=== PATIENT | female | born 1960 | race Caucasian/White ===

== ENCOUNTER → 2020-11-20 17:48 | Outpatient (BNVA) | payer BC, SELFPAY | PROVIDERS: Visit Provider Family Medicine | DX: I10 Essential (primary) hypertension (principal); E89.0 Postprocedural hypothyroidism; I48.91 Unspecified atrial fibrillation; I38 Endocarditis, valve unspecified; I48.0 Paroxysmal atrial fibrillation; R74.8 Abnormal levels of other serum enzymes | CPT/HCPCS: 80053; 80061; 84439; 84443; 84481 ==

== ENCOUNTER → 2021-04-26 08:59 | Outpatient (BNVA) | payer BC, SELFPAY | PROVIDERS: Visit Provider Family Medicine | DX: E89.0 Postprocedural hypothyroidism; I10 Essential (primary) hypertension; I48.0 Paroxysmal atrial fibrillation; R74.8 Abnormal levels of other serum enzymes | CPT/HCPCS: 80053; 84439; 84443; 84481 ==

== ENCOUNTER 2021-04-30 12:00 | Outpatient (CLI) | payer BC, SELFPAY | END 2021-04-30 12:01 | disposition home or self-care (01) | LOC: SLEEP 05-01 09:58 | PROVIDERS: Visit Provider Internal Medicine Cardiovascular Disease | DX: G47.10 Hypersomnia, unspecified (principal) | CPT/HCPCS: G0399 ==

== ENCOUNTER 2021-05-17 14:34 | Outpatient (CLI) | payer BC, SELFPAY ==
--- NOTE | 2021-05-17 15:00 | USCV_ITS ---
Angelica Felix Age: 60 Gender: F : 1960 Exam Date: 05/17/2021 15:00 Ordering Phys: Ginny Drew MD ([email or web address]) Technologist: [email or web address] Exam Location: [facility] – [place] Indication: Paroxysmal atrial fibrillation BP: / HR: 128 Rhythm: Sinus Technical Quality: Adequate MEASUREMENTS (Male / Female) Normal Values 2D ECHO LV Diastolic Diameter PLAX 4.3 cm 4.2 - 5.9 / 3.9 - 5.3 cm LV Systolic Diameter PLAX 3.2 cm IVS Diastolic Thickness 1.1 cm 0.6 - 1.0 / 0.6 - 0.9 cm IVS Systolic Thickness 2.0 cm LVPW Diastolic Thickness 0.9 cm 0.6 - 1.0 / 0.6 - 0.9 cm LVPW Systolic Thickness 1.7 cm LVOT Diameter 2.0 cm LV Ejection Fraction 2D Teich 49.9 % LV Ejection Fraction MOD 2C 73.4 % LV Ejection Fraction 2C AL 73.9 % LA Diameter 4.0 cm LA Width 4.8 cm LA Height 5.4 cm RA Width 3.2 cm RA Height 4.5 cm Aorta at Sinotubular Diameter 2.8 cm M-MODE Aortic Annulus Diameter 3.5 cm MV E Point Septal Separation 0.3 cm DOPPLER AV Peak Velocity 157.0 cm/s LVOT Peak Velocity 102.0 cm/s AV Area Cont Eq vti 1.9 cm squared AV Area Cont Eq pk 2.1 cm squared MV Peak Velocity 68.0 cm/s MV Area PHT 2.5 cm squared Mitral E to A Ratio 0.8 MV E' Velocity 35.5 cm/s Mitral E to MV E' Ratio 6.9 Mitral E to LV E' Lateral Ratio 6.2 Mitral E to LV E' Septal Ratio 7.8 TR Peak Velocity 256.3 cm/s TR Peak Gradient 26.3 mmHg TV Peak E Velocity 37.0 cm/s Right Atrial Pressure 5.0 mmHg Pulmonary Artery Systolic Pressu 31.3 mmHg PV Peak Velocity 127.0 cm/s RV Acceleration Time 0.1 s RV Ejection Time 0.4 s RV AcT/ET 0.2 FINDINGS Left Ventricle Normal left ventricular size, systolic function and wall thickness, with no regional wall motion abnormalities. Left ventricular ejection fraction is estimated at 65 %. Normal diastolic function. Right Ventricle Normal right ventricular size and systolic function. Right ventricular systolic pressure 36 mmHg. Right Atrium Normal right atrial size. Right atrial pressure estimated at 3 mm Hg. Left Atrium Moderately increased left atrial size. Mitral Valve Mild mitral annular calcification. Structurally normal mitral valve. No mitral valve stenosis. Mild mitral valve regurgitation. Aortic Valve Structurally normal trileaflet aortic valve. No aortic valve stenosis. Trace aortic valve regurgitation. Tricuspid Valve Structurally normal tricuspid valve. No tricuspid valve stenosis. Mild tricuspid valve regurgitation. Pulmonic Valve Structurally normal pulmonic valve. No pulmonary valve stenosis. Trace pulmonary valve regurgitation. Pericardium No pericardial effusion. Aorta Normal size aortic root and proximal ascending aorta. Normal sized inferior vena cava with normal respiratory variation. CONCLUSIONS 1. Normal left ventricular size, systolic function and wall thickness, with no regional wall motion abnormalities. Left ventricular ejection fraction is estimated at 65 %. Normal diastolic function. 2. Normal right ventricular size and systolic function. 3. Pulmonary artery pressure estimated at 36 mm Hg. 4. Mild mitral and tricuspid valve regurgitation. 5. No prior similar studies to compare. Ginny Drew MD (Electronically Signed) Final Date: 26 May 2021 13:59 S
== END 2021-05-17 14:35 | disposition home or self-care (01) ==
LOC: RAD 14:37
PROVIDERS: Visit Provider Internal Medicine Cardiovascular Disease
DX: I48.0 Paroxysmal atrial fibrillation (principal)
CPT/HCPCS: C8929

== ENCOUNTER → 2021-12-07 10:23 | Outpatient (BNVA) | payer BC, SELFPAY | PROVIDERS: Visit Provider Emergency Medicine | DX: M25.761 Osteophyte, right knee (principal); M25.561 Pain in right knee | CPT/HCPCS: 73562 ==

== ENCOUNTER 2021-12-26 09:30 | Outpatient (CLI) | payer BC, SELFPAY | END 2021-12-26 23:00 | disposition home or self-care (01) | PROVIDERS: PCP Family Medicine; Visit Provider Emergency Medicine | DX: Z13.220 Encounter for screening for lipoid disorders; Z13.6 Encounter for screening for cardiovascular disorders; E89.0 Postprocedural hypothyroidism; I10 Essential (primary) hypertension | CPT/HCPCS: 80053; 80061; 84439; 84443; 84481 ==

== ENCOUNTER 2022-12-06 11:55 | Outpatient (CLI) | payer BC, SELFPAY ==
--- NOTE | 2022-12-06 12:04 | USCV_ITS ---
Angelica Felix Age: 62 Gender: F : 1960 Exam Date: 12/06/2022 12:14 Ordering Phys: Jhon Arcos MD Technologist: Exam Location: [facility] – [place] Indication: afib BP: 128 / 78 HR: 119 Rhythm: Atrial fibrillation Technical Quality: Adequate MEASUREMENTS (Male / Female) Normal Values 2D ECHO LV Diastolic Diameter PLAX 4.1 cm 4.2 - 5.9 / 3.9 - 5.3 cm LV Systolic Diameter PLAX 3.5 cm IVS Diastolic Thickness 1.3 cm 0.6 - 1.0 / 0.6 - 0.9 cm IVS Systolic Thickness 1.7 cm LVPW Diastolic Thickness 1.3 cm 0.6 - 1.0 / 0.6 - 0.9 cm LVPW Systolic Thickness 2.1 cm LVOT Diameter 2.0 cm LV Ejection Fraction 2D Teich 28.7 % LV Ejection Fraction MOD 2C 52.5 % LV Ejection Fraction 2C AL 50.0 % LA Diameter 5.1 cm IVC Diameter 2.2 cm M-MODE RV Diastolic Diameter MM 2.4 cm Aortic Annulus Diameter 3.2 cm LA Ao Ratio MM 1.5 MV E Point Septal Separation 1.4 cm DOPPLER AV Peak Velocity 116.0 cm/s LVOT Peak Velocity 72.0 cm/s AV Area Cont Eq vti 2.3 cm squared AV Area Cont Eq pk 2.0 cm squared MV Area PHT 5.0 cm squared Mitral E to A Ratio 2.3 MV E' Velocity 49.0 cm/s Mitral E to MV E' Ratio 5.5 Mitral E to LV E' Lateral Ratio 6.5 Mitral E to LV E' Septal Ratio 4.7 TR Peak Velocity 338.6 cm/s TR Peak Gradient 45.9 mmHg TV Peak E Velocity 100.0 cm/s Right Atrial Pressure 3.0 mmHg Pulmonary Artery Systolic Pressu 48.9 mmHg FINDINGS Left Ventricle Diffuse hypokinesia of the left ventricular ejection fraction of around 40%. No intracardiac masses Right Ventricle Normal right ventricular size and systolic function. Right Atrium Moderately increased right atrial size. Left Atrium Moderately increased left atrial size. The interatrial septum is abutting the right side. Mitral Valve Mild to moderate mitral valve regurgitation. Aortic Valve No gross abnormalities noted Tricuspid Valve Mild tricuspid valve regurgitation. Pulmonic Valve Pulmonic valve not well visualized. Pericardium No pericardial effusion. Aorta Normal ascending aorta dimension. IVC The inferior vena cava appears normal. CONCLUSIONS Normal left ventricular size, systolic function and wall thickness, with no regional wall motion abnormalities. Normal left ventricular wall thickness. Normal diastolic filling pattern. Moderately increased right atrial size. Moderately increased left atrial size. The interatrial septum is abutting the right side. Mild to moderate mitral valve regurgitation. Mild tricuspid valve regurgitation. Estimated pulmonary artery peak systolic pressure of 49 mmHg There is no pericardial effusion. compared to the study from 05/17/2021, the LV ejection fraction has dropped to 40%(previous LV ejection fraction of 65%) Dr Dalia Ferguson MD FAC (Electronically Signed) Final Date: 06 December 2022 14:17 S
== END 2022-12-06 11:56 | disposition home or self-care (01) ==
PROVIDERS: PCP Family Medicine; Visit Provider Family Medicine
DX: I50.9 Heart failure, unspecified (principal); I34.0 Nonrheumatic mitral (valve) insufficiency; I07.1 Rheumatic tricuspid insufficiency
CPT/HCPCS: 93306